=== PATIENT | male | born 1965 | race Caucasian/White ===

== ENCOUNTER 2024-06-06 07:06 | Day surgery (SDC) | payer BC ==
[~2024-06-06] VITALS: Ht 182.9 cm; Wt 108.9 kg
[~2024-06-06 07:06] MED LIST: ASPIRIN ADULT L81 MG PO; COZAAR50 MG PO; LIPITOR10 MG PO; LORTAB5 PO; MULTI VIT PO
[2024-06-06] MEDS ORDERED: FAMOTIDINE 10MG/ML 2ML SDV IV ONE (07:28)
[2024-06-06] MEDS ORDERED: LACTATED RINGER'S 1,000 ML IV ONE (07:28)
[2024-06-06 08:44] VITALS: BP 138/95
[2024-06-06] MEDS ORDERED: LIDOCAINE HCL 2% 2ML SDV IV ONE (14:11)
[2024-06-06] MEDS ORDERED: PROPOFOL 200 MG/20 ML VIAL IV ONE (14:11)
== END 2024-06-06 09:03 | disposition home or self-care (01) | DRG 951 ==
LOC: ENDO 07:06
PROVIDERS: ATTEND Internal Medicine Gastroenterology
PROC: 0DJD8ZZ Inspection of Lower Intestinal Tract, Via Natural or Artificial Opening Endoscopic (ICD-10-PCS; principal; 2024-06-06)
DX: Z12.11 Encounter for screening for malignant neoplasm of colon (principal); K64.8 Other hemorrhoids; E78.5 Hyperlipidemia, unspecified